=== PATIENT | female | born 1985 | race American Indian/Alaskan Native ===

== ENCOUNTER 2016-08-29 01:45 | Emergency (ER) | payer OTHER ==
[2016-08-29 02:24] LABS: Basophils % (Auto) 0.2 % (0.0-1.8); Hematocrit 37.4 % (30.3-42.9); Hemoglobin 12.2 gm/dl (10.1-14.3); Mean Corpuscular HGB Conc 33 % (30-34); Mean Corpuscular Hemoglobin 28 pg (28-32); Mean Corpuscular Volume 86 fl (79-97); Platelet Count 317 K/mm3 (140-440); Red Blood Count 4.33 M/mm3 (3.65-5.03); Red Cell Distribution Width 14.1 % (13.2-15.2); White Blood Count 7.3 K/mm3 (4.5-11.0)
[2016-08-29 02:36] LABS: BUN/Creatinine Ratio 13.33; Blood Urea Nitrogen 8 mg/dL (7-17); Calcium 8.8 mg/dL (8.4-10.2); Carbon Dioxide 27 mmol/L (22-30); Chloride 99.6 mmol/L (98-107); Glucose 114 mg/dL (65-100); Potassium 3.8 mmol/L (3.6-5.0); Sodium 140 mmol/L (137-145)
[2016-08-29 02:56] LABS: Anion Gap 17 mmol/L
--- NOTE | 2016-08-29 04:30 | Emergency Department Report ---
ED Palpitations HPI - General Chief Complaint: Arrhythmia/Palpitations Stated Complaint: RAPID HEARTBEAT Time Seen by Provider: 08/29/16 04:22 Source: patient Mode of arrival: Ambulatory Limitations: No Limitations - History of Present Illness Initial Comments: This is a pleasant 31-year-old who over the last week has felt intermittent palpitations which she'll feel her heart racing and beating very hard. She does endorse some caffeine intake 1 energy drink per day. She denies significant alcohol intake she denies any other stimulants. She denies any cough he's recently. She does endorse hypothyroidism but is not on thyroxine for this. Denies any associated pain with this or shortness of breath. It is never woken her from sleep. She usually feels it more when she is resting well. And he had any episodes where she felt lightheaded or dizzy with that. No family history of palpitations or arrhythmias or personal history either. MD Complaint: rapid heart beat Onset/Timin -: Sudden, week(s) Context: occured during rest Associated Symptoms: denies other symptoms - Related Data Allergies Allergy/AdvReac Type Severity Reaction Status Date / Time shrimp Allergy Shortness Verified 08/29/16 01:54 of Breath ED Review of Systems ROS: Stated complaint: RAPID HEARTBEAT Other details as noted in HPI Constitutional: denies: chills, fever Eyes: denies: eye pain, eye discharge, vision change ENT: denies: ear pain, throat pain Respiratory: denies: cough, shortness of breath, wheezing Cardiovascular: palpitations. denies: chest pain Endocrine: no symptoms reported Gastrointestinal: denies: abdominal pain, nausea, diarrhea Genitourinary: other (denies ). denies: urgency, dysuria, discharge Musculoskeletal: denies: back pain, joint swelling, arthralgia Skin: denies: rash, lesions Neurological: denies: headache, weakness, paresthesias Psychiatric: denies: anxiety, depression Hematological/Lymphatic: denies: easy bleeding, easy bruising ED Past Medical Hx - Past Medical History Previous Medical History?: Yes Additional medical history: Hypothyroid. Hypoglycemia. sleep apenia. vit D deficiancy. - Surgical History Past Surgical History?: No ED Physical Exam - General Limitations: No Limitations General appearance: alert, in no apparent distress, obese - Head Head exam: Present: atraumatic, normocephalic - Eye Eye exam: Present: normal appearance - ENT ENT exam: Present: mucous membranes moist - Neck Neck exam: Present: normal inspection - Respiratory Respiratory exam: Present: normal lung sounds bilaterally. Absent: respiratory distress - Cardiovascular Cardiovascular Exam: Present: regular rate, normal rhythm. Absent: systolic murmur, diastolic murmur, rubs, gallop - GI/Abdominal GI/Abdominal exam: Present: soft, normal bowel sounds - Extremities Exam Extremities exam: Present: normal inspection - Back Exam Back exam: Present: normal inspection - Neurological Exam Neurological exam: Present: alert, oriented X3 - Psychiatric Psychiatric exam: Present: normal affect, normal mood - Skin Skin exam: Present: warm, dry, intact, normal color. Absent: rash ED Course Vital Signs 08/29/16 08/29/16 01:48 03:35 Temperature 98.8 F Pulse Rate 79 80 Respiratory 18 18 Rate Blood Pressure 142/92 Blood Pressure 138/88 [Left] O2 Sat by Pulse 100 100 Oximetry - Reevaluation(s) Reevaluation #1: 08/29/16 05:06 ECG here demonstrates normal sinus rhythm had lab studies performed also were unremarkable. Not done. Do not feel it is relevant in her presentation though. I did suggest she follow up with her primary physician to set up for Holter monitor. My gestalt I don't think they will find anything on Holter either. Patient given reassurance. I suspect benign palpitations. ED Medical Decision Making - Lab Data Result diagrams: 08/29/16 02:04 08/29/16 02:04 Critical care attestation.: If time is entered above; I have spent that time in minutes in the direct care of this critically ill patient, excluding procedure time. ED Disposition Clinical Impression: Heart palpitations Disposition: DISCHARGED TO HOME OR SELFCARE Is pt being admited?: No Does the pt Need Aspirin: No Condition: Stable Additional Instructions: Follow-up with your doctor to get set up for a Holter monitor. Referrals: RICARDO OLIVEROS MD [Primary Care Provider] - 3-5 Days Time of Disposition: 04:30
[2016-08-29 04:39] VITALS: BP 138/88
== END 2016-08-29 04:41 | disposition home or self-care (01) ==
LOC: ED 01:45
DX: R00.2 Palpitations (principal); E03.9 Hypothyroidism, unspecified; E16.2 Hypoglycemia, unspecified; G47.30 Sleep apnea, unspecified; Z91.013 Allergy to seafood
CPT/HCPCS: 36415; 80048; 84484; 85025; 93005; 93010; 99284

== ENCOUNTER 2018-03-24 23:09 | Emergency (ER) | payer OTHER ==
[2018-03-24] MEDS ORDERED: PROVENTIL IH ONE (23:38)
--- NOTE | 2018-03-25 00:28 | XRay Report ---
FINAL REPORT EXAM: XR CHEST ROUTINE 2V HISTORY: cough TECHNIQUE: PA and lateral views of the chest were obtained. PRIORS: None. FINDINGS: There are no focal consolidations to suggest pneumonia. No large pleural effusion. No pneumothorax. Borderline enlargement of the cardiac silhouette. Mediastinal structures unremarkable. No acute osseous abnormality identified. IMPRESSION: No radiographic evidence of acute cardiopulmonary disease.
--- NOTE | 2018-03-25 01:49 | Emergency Department Report ---
Upper Respiratory HPI - HPI Chief Complaint: Upper Respiratory Infection Stated Complaint: COUGH,SOB Time Seen by Provider: 03/25/18 01:06 Duration: 5 Days URI Symptoms: Rhinorrhea: Yes, Sore Throat: No, Ear Pain: Yes, Cough: Yes, Shortness of Breath: Yes, Sick Contacts: Yes, Unable to Take Fluids: No, Urine Output Abnormal: No, Listless Behavior: No Other History: Presented 32-year-old female history of bronchitis with cough shortness of breath wheezing for 3 days associated ear and sinus pain symptoms exacerbated by activity symptoms relieved with rather treatment however patient is out of albuterol - Home Meds and Allergies Home Medications: Previous Rx's Medication Instructions Recorded Last Taken Type ALBUTEROL Inhaler(NF) [VENTOLIN 1 puff IH Q4-6H PRN #1 inha 03/25/18 Unknown Rx Inhaler(NF)] Codeine Phosphate/Guaifenesin 5 ml PO TID PRN #120 ml 03/25/18 Unknown Rx [Guaifenesin-Codeine Syrup] Ibuprofen 800 mg PO TID PRN #30 tablet 03/25/18 Unknown Rx predniSONE [Deltasone] 40 mg PO QDAY 5 Days #10 tab 03/25/18 Unknown Rx Allergies/Adverse Reactions: Allergies Allergy/AdvReac Type Severity Reaction Status Date / Time shrimp Allergy Shortness Verified 08/29/16 01:54 of Breath ED Review of Systems ROS: Stated complaint: COUGH,SOB Other details as noted in HPI Constitutional: denies: chills, fever Eyes: denies: eye pain, eye discharge, vision change ENT: ear pain, congestion Respiratory: cough, shortness of breath, wheezing Cardiovascular: denies: chest pain, palpitations Endocrine: no symptoms reported Gastrointestinal: denies: abdominal pain, nausea, diarrhea Genitourinary: denies: urgency, dysuria, discharge Musculoskeletal: denies: back pain, joint swelling, arthralgia Skin: denies: rash, lesions Neurological: denies: headache, weakness, paresthesias Psychiatric: denies: anxiety, depression Hematological/Lymphatic: denies: easy bleeding, easy bruising ED Past Medical Hx - Past Medical History Additional medical history: Hypothyroid, OBESITY. Hypoglycemia. sleep apenia. vit D deficiancy. - Surgical History Past Surgical History?: No - Social History Smoking Status: Current Every Day Smoker Substance Use Type: None - Medications Home Medications: Home Medications Medication Instructions Recorded Confirmed Last Taken Type ALBUTEROL Inhaler(NF) [VENTOLIN 1 puff IH Q4-6H PRN #1 inha 03/25/18 Unknown Rx Inhaler(NF)] Codeine Phosphate/Guaifenesin 5 ml PO TID PRN #120 ml 03/25/18 Unknown Rx [Guaifenesin-Codeine Syrup] Ibuprofen 800 mg PO TID PRN #30 tablet 03/25/18 Unknown Rx predniSONE [Deltasone] 40 mg PO QDAY 5 Days #10 tab 03/25/18 Unknown Rx ED Bronchiolitis Physical Exam - Exam General: Vital signs noted. No distress. Alert and acting appropriately. HEENT: Yes Pharyngeal Erythema, Yes Rhinorrhea, No Conjuctival Injection, No Dry Mucous Membranes Ear: Neither TM Bulge, Neither TM Erythema, Neither EAC Discharge Neck: No Adenopathy, No Rigidity Lungs: Yes Good Air Exchange, Yes Wheezes, Yes Cough, No Clear Lung Sounds, No Stridor, No Nasal Flaring, No Retractions, No Use of Accessory Muscles Heart: Yes Regular, No Murmur Abdomen: Yes Normal Bowel Sounds, No Tenderness, No Peritoneal Signs Skin: No Rash, No Eczema Neurologic: Alert and oriented, no deficits. Musculoskeletal: Unremarkable. ED Bronchiolitis Tests - Testing Testing: CXR: Normal/Negative Treatments - Treaments Treatment: Improved Albuterol ED Physical Exam - General Limitations: No Limitations General appearance: alert, in no apparent distress - Head Head exam: Present: atraumatic, normocephalic - Eye Eye exam: Present: normal appearance - ENT ENT exam: Present: other (bilat maxillayr sinus pain to palpation no swelling no erythema she) - Expanded ENT Exam Expanded Ear exam: Present: normal external inspection Mouth exam: Present: tongue normal. Absent: trismus Teeth exam: Present: normal inspection Throat exam: Positive: tonsillar erythema. Negative: tonsillomegaly, tonsillar exudate, R peritonsillar mass, L peritonsillar mass - Neck Neck exam: Present: normal inspection, full ROM. Absent: tenderness, meningismus, lymphadenopathy, thyromegaly - Respiratory Respiratory exam: Present: normal lung sounds bilaterally, wheezes. Absent: respiratory distress, stridor, chest wall tenderness - Cardiovascular Cardiovascular Exam: Present: regular rate, normal rhythm, normal heart sounds. Absent: systolic murmur, diastolic murmur, rubs, gallop - GI/Abdominal GI/Abdominal exam: Present: soft, normal bowel sounds. Absent: bruit, hernia - Rectal Rectal exam: Present: deferred - Extremities Exam Extremities exam: Present: normal inspection - Back Exam Back exam: Present: normal inspection - Neurological Exam Neurological exam: Present: alert, oriented X3, CN II-XII intact, normal gait - Skin Skin exam: Present: warm, dry, intact, normal color. Absent: rash ED Course Vital Signs 03/24/18 03/24/18 23:14 23:23 Temperature 99.0 F 99 F Pulse Rate 101 H 100 H Respiratory 18 18 Rate Blood Pressure 151/86 151/86 O2 Sat by Pulse 96 96 Oximetry ED Medical Decision Making - Radiology Data Radiology results: report reviewed, image reviewed no infiltrates no opacities - Medical Decision Making Chest x-ray negative breathing improved . Meds including nebulizer prednisone plan DC home refill albuterol and prednisone 5 days ibuprofen for pain Cheratussin for cough patient will follow up with PCP in 2-3 days to verbalize understanding and agreement with same patient [place] [id number] ambulatory throughout ED with increased shortness of breath minimal extra wheezing noted at this time Critical care attestation.: If time is entered above; I have spent that time in minutes in the direct care of this critically ill patient, excluding procedure time. ED Disposition Clinical Impression: Bronchitis Disposition: DC- TO HOME OR SELFCARE Is pt being admited?: No Does the pt Need Aspirin: No Condition: Good Instructions: Acute Bronchitis (ED) Prescriptions: ALBUTEROL Inhaler(NF) [VENTOLIN Inhaler(NF)] 1 puff IH Q4-6H PRN #1 inha PRN Reason: sob / wheezing Codeine Phosphate/Guaifenesin [Guaifenesin-Codeine Syrup] 5 ml PO TID PRN #120 ml PRN Reason: Cough Ibuprofen 800 mg PO TID PRN #30 tablet PRN Reason: pain fever predniSONE [Deltasone] 40 mg PO QDAY 5 Days #10 tab Referrals: RICARDO OLIVEROS MD [Referring] - 3-5 Days Forms: Work/School Release Form(ED) Time of Disposition: 02:05
[2018-03-25 02:20] VITALS: BP 150/82
== END 2018-03-25 02:20 | disposition home or self-care (01) ==
LOC: ED 23:09
DX: J40 Bronchitis, not specified as acute or chronic (principal); E03.9 Hypothyroidism, unspecified; G47.30 Sleep apnea, unspecified; F17.200 Nicotine dependence, unspecified, uncomplicated; Z91.013 Allergy to seafood
CPT/HCPCS: 71046; 82962; 94640